=== PATIENT | male | born 1980 | race Caucasian/White ===

== ENCOUNTER 2020-09-28 22:47 | Emergency (ER) | payer SELFPAY ==
--- NOTE | 2020-09-29 02:21 | ER ---
Nurse's Notes [facility] Name: Adeel Ruff Jr Age: 40 yrs Sex: Male : 1980 Arrival Date: 09/28/2020 Time: 22:52 Bed Waiting Private MD: Diagnosis: Presentation: 09/29 00:50 Chief complaint: Patient states: cough, shortness of breath and had covid exposure, em denies fever. Coronavirus screen: Client denies travel out of the [place] in the last 14 days. Ebola Screen: Patient negative for fever greater than or equal to 101.5 degrees Fahrenheit, and additional compatible Ebola Virus Disease symptoms Patient denies exposure to infectious person. Patient denies travel to an Ebola-affected area in the 21 days before illness onset. No symptoms or risks identified at this time. Initial Sepsis Screen: Does the patient meet any 2 criteria? No. Patient's initial sepsis screen is negative. Does the patient have a suspected source of infection? No. Patient's initial sepsis screen is negative. Risk Assessment: Do you want to hurt yourself or someone else? Patient reports no desire to harm self or others. Onset of symptoms was September 29, 2020. 00:50 Method Of Arrival: Ambulatory em 00:50 Acuity: LIZZY 4 em Historical: - Allergies: 00:52 PENICILLINS; em - PMHx: 00:52 None; em - PSHx: 00:52 None; em - Immunization history:: Client reports having NOT received the Covid vaccine. - Social history:: Smoking status: Patient reports the use of cigarette tobacco products, smokes one pack cigarettes per day. Vital Signs: 00:50 BP 133 / 84; Pulse 75; Resp 16; Temp 98.2; Pulse Ox 100% on R/A; Weight 70.31 kg; em Height 5 ft. 10 in. (177.80 cm); 00:50 Body Mass Index 22.24 (70.31 kg, 177.80 cm) em ED Course: 09/28 22:52 Patient arrived in ED. cf2 09/29 00:52 Triage completed. em 00:52 Arm band placed on. em 02:20 Patient's name was called from ER lobby. No response. Unable to locate patient. Will bb disposition as left without being seen by a provider. Administered Medications: No medications were administered Outcome: 02:20 Patient left the ED. bb Signatures: Kyler Garza RN RN em Erica Cummins RN RN bb Maura Rizvi 2 Corrections: (The following items were deleted from the chart) 00:53 00:52 Allergies: No Known Allergies; em em
[2020-09-29 02:32] VITALS: BP 133/84; TEMP 98.2; O2SAT 100
== END 2020-09-29 02:20 | disposition left against medical advice (07) ==
LOC: ER 22:47
DX: Z53.21 Procedure and treatment not carried out due to patient leaving prior to being seen by health care provider (principal); Z20.822 Contact with and (suspected) exposure to COVID-19
CPT/HCPCS: 99281; U0003

== ENCOUNTER 2021-01-01 21:16 | Emergency (ER) | payer SELFPAY ==
[2021-01-01] MEDS ORDERED: AZITHROMYCIN 250 MG TAB ONE (22:02)
[2021-01-01] MEDS ORDERED: ONDANSETRON 4 MG/2 ML VIAL ONE (22:02)
[2021-01-01] MEDS ORDERED: MORPHINE 4 MG/ML SYR ONE (22:02)
[2021-01-01] MEDS ORDERED: NA CHLORIDE 0.9% 50 ML ONE (22:03)
[2021-01-01] MEDS ORDERED: DOXYCYCLINE 100 MG CAP PO ONE (22:03)
[2021-01-01] MEDS ORDERED: CEFTRIAXONE 1000 MG/VIAL ONE (22:03)
[2021-01-01] MEDS ORDERED: Levofloxacin 750mg IV 750 MG/150 ML BAG IV ONE (22:03)
[2021-01-01 22:28] LABS: Urine Blood Negative (Negative); Urine Glucose Negative (Negative); Urine Protein Negative (Negative); Urine Specific Gravity 1.025 (1.005-1.030); Urine pH 5.5 (5.0-7.0)
[2021-01-01 22:34] LABS: Absolute Lymphocytes (CBC) 2.1 K/uL (0.7-4.9); Basophils % 0.8 % (0-1.3); Hematocrit 35.8 % (39.6-49.0); Lymphocytes % 17.3 % (15.3-44.8); MPV 7.1 fL (7.6-11.3); RBC Red Blood Cell Count 3.94 M/uL (4.33-5.43)
--- NOTE | 2021-01-01 22:59 | ER ---
Nurse's Notes [facility] Name: Adeel Ruff Jr Age: 40 yrs Sex: Male : 1980 Arrival Date: 01/01/2021 Time: 21:20 Bed 9 Private MD: Diagnosis: Epididymitis;Epididymo-orchitis;Dysuria;Hydrocele, unspecified Presentation: 01/01 21:38 Chief complaint: Patient states: Pt states testicle swelling and burning with urination df1 increasing past 3 days. Coronavirus screen: Vaccine status: Patient reports being unvaccinated. Client denies travel out of the [place] in the last 14 days. At this time, the client does not indicate any symptoms associated with coronavirus-19. Ebola Screen: Patient negative for fever greater than or equal to 101.5 degrees Fahrenheit, and additional compatible Ebola Virus Disease symptoms Patient denies exposure to infectious person. Patient denies travel to an Ebola-affected area in the 21 days before illness onset. Initial Sepsis Screen: Does the patient meet any 2 criteria? No. Patient's initial sepsis screen is negative. Does the patient have a suspected source of infection? No. Patient's initial sepsis screen is negative. Risk Assessment: Do you want to hurt yourself or someone else? Patient reports no desire to harm self or others. Onset of symptoms was December 29, 2020. 21:38 Method Of Arrival: Wheelchair df1 21:38 Acuity: LIZZY 3 df1 21:40 Note Pt denies any trauma or injury. df1 Triage Assessment: 22:32 General: Appears uncomfortable, Behavior is calm, cooperative. Pain: Complains of pain df1 in groin. GI: No deficits noted. Historical: - Allergies: 21:39 PENICILLINS; df1 - Home Meds: 21:39 None [Active]; df1 - PMHx: 21:39 None; df1 - PSHx: 21:39 None; df1 - Immunization history:: Adult Immunizations not up to date, Client reports having NOT received the Covid vaccine. - Social history:: Smoking status: Patient reports the use of cigarette tobacco products, smokes one pack cigarettes per day. Patient uses alcohol, only on a social basis. Screenin:32 Abuse screen: Denies threats or abuse. Nutritional screening: No deficits noted. df1 Tuberculosis screening: No symptoms or risk factors identified. Fall Risk None identified. Assessment: 22:34 General: Appears uncomfortable, Behavior is calm, cooperative. Pain: Complains of pain df1 in groin Pain at worst was 10 out of 10 on a pain scale. Neuro: No deficits noted. Cardiovascular: No deficits noted. Respiratory: No deficits noted. GI: Bowel sounds present X 4 quads. Abd is soft and non tender Reports nausea. : Reports burning with urination. EENT: No deficits noted. Derm: No deficits noted. Musculoskeletal: No deficits noted. Vital Signs: 21:38 BP 105 / 71; Pulse 97; Resp 18; Temp 98.4; Pulse Ox 100% on R/A; Weight 63.5 kg; Height df1 5 ft. 10 in. (177.80 cm); Pain 9/10; 22:33 BP 116 / 75; Pulse 95; Resp 18; Pulse Ox 99% on R/A; df1 01/02 00:23 BP 110 / 68; Pulse 89; Resp 18; Pulse Ox 100% on R/A; Pain 4/10; df1 01/01 21:38 Body Mass Index 20.09 (63.50 kg, 177.80 cm) df1 ED Course: 01/01 21:20 Patient arrived in ED. cf2 21:39 Triage completed. df1 21:48 Babar Morris MD is Attending Physician. hermilo 22:30 US Scrotum Testicles Sent. df1 22:31 Urine Culture Sent. df1 22:31 Comprehensive Metabolic Panel Sent. df1 22:31 CBC with Diff Sent. df1 22:31 No provider procedures requiring assistance completed. Inserted saline lock: 20 gauge df1 in right antecubital area, using aseptic technique. 22:32 Patient has correct armband on for positive identification. Placed in gown. Bed in low df1 position. Call light in reach. Side rails up X 1. 22:37 US Scrotum Testicles In Process Unspecified. EDMS 22:41 Bianka Solomon, LOLITA is Primary Nurse. ld1 22:58 Jacob Reyes MD is Referral Physician. hermilo 23:31 Jacob Reyes MD is Referral Physician. hermilo 01/02 00:24 IV discontinued, intact, bleeding controlled, No redness/swelling at site. Pressure df1 dressing applied. 00:24 Arm band placed on right wrist. df1 Administered Medications: 01/01 22:30 Drug: Zofran (Ondansetron) 4 mg Route: IVP; Site: right antecubital; df1 22:55 Follow up: Response: No adverse reaction ld1 22:31 Drug: Rocephin (cefTRIAXone) 2 grams Route: IV; Rate: per protocol; Site: right df1 antecubital; 22:55 Follow up: Response: No adverse reaction ld1 01/02 00:25 Follow up: IV Status: Completed infusion; IV Intake: 50ml df1 01/01 22:31 Drug: Doxycycline 200 mg Route: PO; df1 22:55 Follow up: Response: No adverse reaction ld1 22:31 Drug: Zithromax (azithromycin) 1 grams Route: PO; df1 22:55 Follow up: Response: No adverse reaction ld1 22:31 Drug: morphine 4 mg Route: IVP; Site: right antecubital; df1 22:55 Follow up: Response: No adverse reaction ld1 22:54 Drug: levofloxacin 750 mg Volume: 150 ml; Route: IVPB; Infused Over: 90 mins; Site: ld1 right antecubital; 01/02 00:24 Follow up: IV Status: Completed infusion; IV Intake: 150ml df1 Intake: 00:24 IV: 150ml; Total: 150ml. df1 00:25 IV: 50ml; Total: 200ml. df1 Outcome: 01/01 22:58 Discharge ordered by . hermilo 23:31 Discharge ordered by . hermilo 01/02 00:23 Discharged to home ambulatory. df1 Condition: good Discharge instructions given to patient, Instructed on discharge instructions, follow up and referral plans. medication usage, Demonstrated understanding of instructions, follow-up care, medications, Prescriptions given X 3. 00:25 Patient left the ED. df1 Signatures: Dispatcher [employer] EDBabar Rao MD MD cha Frazier, Celesta cf2 Bianka Solomon RN RN ld1 Marlys Moise df1
--- NOTE | 2021-01-01 22:59 | EDPHYS ---
Physician Documentation [facility] Name: Adeel Ruff Jr Age: 40 yrs Sex: Male : 1980 Arrival Date: 01/01/2021 Time: 21:20 Bed 9 Private MD: ED Physician Babar Morris HPI: 01/01 22:02 This 40 yrs old Male presents to ER via Wheelchair with complaints of hermilo Abdominal Pain, Testicular Swelling. 22:02 The patient presents with scrotal pain, swelling, tenderness, urinary symptoms, hermilo dysuria. Onset: The symptoms/episode began/occurred 3 day(s) ago. Modifying factors: The symptoms are alleviated by remaining still, the symptoms are aggravated by movement, pressure, urinating. Associated signs and symptoms: Pertinent positives: abdominal pain, dysuria. Severity of symptoms: At their worst the symptoms were moderate, in the emergency department the symptoms are unchanged. The patient has not experienced similar symptoms in the past. Historical: - Allergies: 21:39 PENICILLINS; df1 - Home Meds: 21:39 None [Active]; df1 - PMHx: 21:39 None; df1 - PSHx: 21:39 None; df1 - Immunization history:: Adult Immunizations not up to date, Client reports having NOT received the Covid vaccine. - Social history:: Smoking status: Patient reports the use of cigarette tobacco products, smokes one pack cigarettes per day. Patient uses alcohol, only on a social basis. ROS: 22:02 Constitutional: Negative for fever, chills, and weight loss, Eyes: Negative for injury, hermilo pain, redness, and discharge, ENT: Negative for injury, pain, and discharge, Neck: Negative for injury, pain, and swelling, Cardiovascular: Negative for chest pain, palpitations, and edema, Respiratory: Negative for shortness of breath, cough, wheezing, and pleuritic chest pain, Abdomen/GI: Negative for abdominal pain, nausea, vomiting, diarrhea, and constipation, Back: Negative for injury and pain, MS/Extremity: Negative for injury and deformity, Skin: Negative for injury, rash, and discoloration, Neuro: Negative for headache, weakness, numbness, tingling, and seizure, Psych: Negative for depression, anxiety, suicide ideation, homicidal ideation, and hallucinations, Allergy/Immunology: Negative for hives, rash, and allergies, Endocrine: Negative for neck swelling, polydipsia, polyuria, polyphagia, and marked weight changes, Hematologic/Lymphatic: Negative for swollen nodes, abnormal bleeding, and unusual bruising. 22:02 : Positive for burning with urination, testicular pain of the right testicle. Exam: 22:02 Constitutional: This is a well developed, well nourished patient who is awake, alert, hermilo and in no acute distress. Head/Face: Normocephalic, atraumatic. Eyes: Pupils equal round and reactive to light, extra-ocular motions intact. Lids and lashes normal. Conjunctiva and sclera are non-icteric and not injected. Cornea within normal limits. Periorbital areas with no swelling, redness, or edema. ENT: Nares patent. No nasal discharge, no septal abnormalities noted. Tympanic membranes are normal and external auditory canals are clear. Oropharynx with no redness, swelling, or masses, exudates, or evidence of obstruction, uvula midline. Mucous membranes moist. Neck: Trachea midline, no thyromegaly or masses palpated, and no cervical lymphadenopathy. Supple, full range of motion without nuchal rigidity, or vertebral point tenderness. No Meningismus. Chest/axilla: Normal chest wall appearance and motion. Nontender with no deformity. No lesions are appreciated. Cardiovascular: Regular rate and rhythm with a normal S1 and S2. No gallops, murmurs, or rubs. Normal PMI, no JVD. No pulse deficits. Respiratory: Lungs have equal breath sounds bilaterally, clear to auscultation and percussion. No rales, rhonchi or wheezes noted. No increased work of breathing, no retractions or nasal flaring. Abdomen/GI: Soft, non-tender, with normal bowel sounds. No distension or tympany. No guarding or rebound. No evidence of tenderness throughout. Back: No spinal tenderness. No costovertebral tenderness. Full range of motion. Skin: Warm, dry with normal turgor. Normal color with no rashes, no lesions, and no evidence of cellulitis. MS/ Extremity: Pulses equal, no cyanosis. Neurovascular intact. Full, normal range of motion. Neuro: Awake and alert, GCS 15, oriented to person, place, time, and situation. Cranial nerves II-XII grossly intact. Motor strength 5/5 in all extremities. Sensory grossly intact. Cerebellar exam normal. Normal gait. Psych: Awake, alert, with orientation to person, place and time. Behavior, mood, and affect are within normal limits. 22:02 : CVA tenderness, is absent, Male external genitalia: Circumcision noted. swelling: scrotal, tenderness, of the right testicle is noted, Bladder: is normal, Sexual behavior: the patient is sexually active, and reports multiple partners. Vital Signs: 21:38 BP 105 / 71; Pulse 97; Resp 18; Temp 98.4; Pulse Ox 100% on R/A; Weight 63.5 kg; Height df1 5 ft. 10 in. (177.80 cm); Pain 9/10; 22:33 BP 116 / 75; Pulse 95; Resp 18; Pulse Ox 99% on R/A; df1 01/02 00:23 BP 110 / 68; Pulse 89; Resp 18; Pulse Ox 100% on R/A; Pain 4/10; df1 01/01 21:38 Body Mass Index 20.09 (63.50 kg, 177.80 cm) df1 MDM: 01/01 21:49 Patient medically screened. hermilo 22:04 Differential diagnosis: UTI, prostatitis. Data reviewed: vital signs, nurses notes, lab [facility] test result(s), radiologic studies, doppler. Data interpreted: engine monitor: rate is 97 beats/min, rhythm is regular, Pulse oximetry: on room air is 100 %. Counseling: I had a detailed discussion with the patient and/or guardian regarding: the historical points, exam findings, and any diagnostic results supporting the discharge/admit diagnosis, lab results, radiology results, the need for outpatient follow up, for definitive care, a family practitioner, a urologist. 01/01 21:58 Order name: CBC with Diff; Complete Time: 22:58 hermilo 01/01 21:58 Order name: Comprehensive Metabolic Panel; Complete Time: 23:17 hermilo 01/01 21:58 Order name: Urine Culture [facility] 01/01 22:02 Order name: US Scrotum Testicles [facility] 01/01 22:28 Order name: Urine Dipstick-Ancillary; Complete Time: 22:58 EDMS 01/01 21:58 Order name: Urine Dipstick-Ancillary (obtain specimen); Complete Time: 22:31 hermilo Administered Medications: 22:30 Drug: Zofran (Ondansetron) 4 mg Route: IVP; Site: right antecubital; df1 22:55 Follow up: Response: No adverse reaction ld1 22:31 Drug: Rocephin (cefTRIAXone) 2 grams Route: IV; Rate: per protocol; Site: right df1 antecubital; 22:55 Follow up: Response: No adverse reaction ld1 01/02 00:25 Follow up: IV Status: Completed infusion; IV Intake: 50ml df1 01/01 22:31 Drug: Doxycycline 200 mg Route: PO; df1 22:55 Follow up: Response: No adverse reaction ld1 22:31 Drug: Zithromax (azithromycin) 1 grams Route: PO; df1 22:55 Follow up: Response: No adverse reaction ld1 : Drug: morphine 4 mg Route: IVP; Site: right antecubital; df1 22:55 Follow up: Response: No adverse reaction ld1 22:54 Drug: levofloxacin 750 mg Volume: 150 ml; Route: IVPB; Infused Over: 90 mins; Site: ld1 right antecubital; 01/02 00:24 Follow up: IV Status: Completed infusion; IV Intake: 150ml df1 Disposition Summary: 01/01/21 23:31 Discharge Ordered Location: Home(01/01/21 23:31) hermilo Problem: new(01/01/21 23:31) hermilo Symptoms: have improved(01/01/21 23:31) hermilo Condition: Stable(01/01/21 23:31) hermilo Diagnosis - Epididymitis(01/01/21 23:31) hermilo - Epididymo-orchitis(01/01/21 23:31) hermilo - Dysuria(01/01/21 23:31) hermilo - Hydrocele, unspecified(01/01/21 23:31) hermilo Followup: hermilo - With: Private Physician - When: 2 - 3 days - Reason: Recheck today's complaints, Continuance of care, Re-evaluation by your physician Followup: hermilo - With: - When: 2 - 3 days - Reason: Recheck today's complaints, Continuance of care, Re-evaluation by your physician Discharge Instructions: - Discharge Summary Sheet hermilo - Dysuria hermilo - Epididymitis hermilo - Orchitis hermilo - Hydrocele, Adult hermilo Forms: - Medication Reconciliation Form hermilo - Thank You Letter hermilo - Antibiotic Education [facility] - Prescription Opioid Use [facility] Prescriptions: - Ibuprofen 600 mg Oral Tablet - take 1 tablet by ORAL route every 6 hours As needed take with food; 30 tablet; hermilo Refills: 0, Product Selection Permitted - Doxycycline Hyclate 100 mg Oral Tablet - take 1 tablet by ORAL route every 12 hours; 20 tablet; Refills: 0, Product hermilo Selection Permitted - levofloxacin 750 mg Oral Tablet - take 1 tablet by ORAL route once daily; 7 tablet; Refills: 0, Product Selection hermilo Permitted - Tylenol-Codeine #3 300 mg-30 mg Oral - take 2 tablet by ORAL route every 4-6 hours; 15 tablet; Refills: 0, Product hermilo Selection Permitted Signatures: Dispatcher [employer] EDBabar Rao MD MD cha Dibbern, Lauren RN RN ld1 Marlys Moise df1 Corrections: (The following items were deleted from the chart) 01/01 23:04 22:58 Home [facility] 23:04 22:58 new [facility] 23:04 22:58 have improved [facility] 23:04 22:58 Stable [facility] 23:04 22:58 Epididymitis [facility] 23:04 22:58 Epididymo-orchitis [facility] 23:04 22:58 Dysuria [facility] 23:04 22:58 Hydrocele, unspecified [facility]
[2021-01-01 23:07] LABS: Albumin 3.2 g/dL (3.4-5.0); Bilirubin Total 0.2 mg/dL (0.2-1.0); Potassium 3.8 mmol/L (3.5-5.1)
[2021-01-02 04:07] VITALS: BP 110/68; O2SAT 100
--- NOTE | 2021-01-02 11:44 | RAD REPORT ---
EXAM DESCRIPTION: US - Scrotum Testicles - 01/01/2021 11:33 pm CLINICAL HISTORY: 40 years Male PAIN COMPARISON: None TECHNIQUE: Real-time and Doppler sonography of the testicles was performed bilaterally. FINDINGS: Right testicle is normal in size and echogenicity measuring 4.7 x 3.2 x 2.8 cm. Doppler ev aluation revealed satisfactory flow. Head of the epididymis on the right is enlarged measuring 2.3 cm . Doppler evaluation revealed increased flow. Small to moderate right hydrocele. No evidence for vari cocele. Right scrotal wall thickening. Left testicle is normal in size and echogenicity measuring 4.9 x 2.9 x 3.1 cm. Doppler evaluation rev ealed satisfactory flow. Head of the epididymis on the left measures 1.2 cm. Doppler evaluation revea led satisfactory flow. Small to moderate left hydrocele. No evidence for left varicocele. IMPRESSION: No sonographic evidence for testicular mass or torsion. Findings indicating right epididymitis. Small to moderate bilateral hydroceles. Electronically signed by: Ginette Jaime MD 01/01/2021 10:59 PM SEWING INSPECTOR Due to temporary technical issues with the PACS/Fluency reporting system, reports are being signed by the in house radiologist without review as a courtesy to ensure prompt reporting. The interpreting r adiologist is fully responsible for the content of the report.
== END 2021-01-02 00:25 | disposition home or self-care (01) ==
LOC: ER 21:16
DX: N45.3 Epididymo-orchitis (principal); N43.3 Hydrocele, unspecified; F17.210 Nicotine dependence, cigarettes, uncomplicated; Z88.0 Allergy status to penicillin
CPT/HCPCS: 36415; 76870; 80053; 81003; 85025; 87086; 87088; 96365; 96375; 99284; J2405

== ENCOUNTER 2021-05-10 03:19 | Emergency (ER) | payer SELFPAY ==
--- NOTE | 2021-05-10 03:53 | ER ---
Nurse's Notes [facility] Name: Adeel Ruff Jr Age: 41 yrs Sex: Male : 1980 Arrival Date: 05/10/2021 Time: 03:22 Bed 13 Private MD: Diagnosis: Cutaneous abscess of face;Hematuria, unspecified;Hematospermia Presentation: 05/10 03:32 Chief complaint: Patient states: "I think I caught an STD, this bump hurts, and I just lp1 ejaculated straight blood"; Patient reports painful abscess to frenulum above lip; denies any penile discharge, reports odorous semen. Coronavirus screen: At this time, the client does not indicate any symptoms associated with coronavirus-19. Ebola Screen: No symptoms or risks identified at this time. Risk Assessment: Do you want to hurt yourself or someone else? Patient reports no desire to harm self or others. Onset of symptoms was May 10, 2021. 03:32 Method Of Arrival: Ambulatory lp1 03:32 Acuity: LIZZY 3 lp1 06:02 Initial Sepsis Screen: Does the patient meet any 2 criteria? No. Patient's initial sv1 sepsis screen is negative. Does the patient have a suspected source of infection? No. Patient's initial sepsis screen is negative. Triage Assessment: 06:02 General: Appears uncomfortable, slender, well groomed, Behavior is calm, cooperative, sv1 appropriate for age. Historical: - Allergies: 03:34 PENICILLINS; lp1 - Home Meds: 03:34 None [Active]; lp1 - PMHx: 03:34 None; lp1 - PSHx: 03:34 None; lp1 - Immunization history:: Adult Immunizations unknown. - Social history:: Smoking status: Patient reports the use of cigarette tobacco products, smokes two packs cigarettes per day. - Family history:: not pertinent. Screenin:34 Abuse screen: Denies threats or abuse. Denies injuries from another. Nutritional lp1 screening: No deficits noted. Tuberculosis screening: No symptoms or risk factors identified. Fall Risk None identified. Assessment: 04:43 Pain: Denies pain. sv1 06:03 Reassessment: Labs completed. Cleared for discharge to home by the provider. sv1 medications and follow up instructions were explained to the patient.. Vital Signs: 03:32 Weight 63.5 kg; Height 5 ft. 11 in. (180.34 cm); lp1 03:52 BP 118 / 77 LA Supine (auto/reg); Pulse 85 MON; Resp 16 S; Temp 98.3(O); Pulse Ox 98% ; sv1 Weight 63.5 kg (R); Height 5 ft. 11 in. (180.34 cm) (R); 04:43 BP 110 / 74 LA Supine (auto/reg); Pulse 80 MON; Resp 16 S; Pulse Ox 98% ; Pain 0/10; sv1 05:59 BP 107 / 78 LA Supine (auto/reg); Pulse 84; Resp 18 S; Pulse Ox 98% on R/A; sv1 03:52 Body Mass Index 19.53 (63.50 kg, 180.34 cm) sv1 ED Course: 03:22 Patient arrived in ED. ag3 03:34 Triage completed. lp1 03:34 Arm band placed on. lp1 03:34 Patient has correct armband on for positive identification. lp1 03:36 Babar Morris MD is Attending Physician. [facility] 03:52 Olman Zamarripa, LOLITA is Primary Nurse. sv1 04:43 No provider procedures requiring assistance completed. Patient did not have IV access sv1 during this emergency room visit. 05:58 Jacob Reyes MD is Referral Physician. hermilo Administered Medications: 04:10 Drug: Bactrim (trimethoprim-sulfamethoxazole) (160 mg-800 mg (DS) 1 tablet Route: PO; sv1 04:10 Drug: Doxycycline 200 mg Route: PO; sv1 04:10 Drug: Bactroban (mupirocin) Ointment 2 % 1 application Route: Topical; Site: wound; sv1 Outcome: 03:53 Discharge ordered by . [facility] 05:59 Discharged to home ambulatory. sv1 05:59 Condition: improved 05:59 Discharge instructions given to patient. 06:07 Patient left the ED. sv1 Signatures: Babar Morris MD MD cha Pena, Laura, RN RN lp1 Yocasta Sanders 3 Carmen Fox cs9 Olman Zamarripa, RN RN sv1 Corrections: (The following items were deleted from the chart) 04:57 04:29 URINALYSIS+[id number].LAB.BRZ drawn and sent. cs9 EDMS
--- NOTE | 2021-05-10 03:53 | EDPHYS ---
Physician Documentation [facility] Name: Adeel Ruff Jr Age: 41 yrs Sex: Male : 1980 Arrival Date: 05/10/2021 Time: 03:22 Bed 13 Private MD: JUAQUIN Physician Babar Morris HPI: 05/10 03:47 This 41 yrs old Male presents to ER via Ambulatory with complaints of BUMP ON hermilo FACE. 03:47 The patient presents with an abscess of the nose, The patient presents with cellulitis hermilo of the nasal septum. Description: The affected area is small, confluent, draining, erythematous, fluctuant. Onset: The symptoms/episode began/occurred 3 day(s) ago. Possible cause(s): unknown. Associated signs and symptoms: The patient has no apparent associated signs or symptoms. The patient presents with urinary symptoms, hemaruria. Modifying factors: The symptoms are alleviated by nothing, the symptoms are aggravated by nothing. Modifying factors: the symptoms are alleviated by nothing, the symptoms are aggravated by nothing. Severity of symptoms: At their worst the symptoms were mild, in the emergency department the symptoms have improved, moderately. Historical: - Allergies: 03:34 PENICILLINS; lp1 - Home Meds: 03:34 None [Active]; lp1 - PMHx: 03:34 None; lp1 - PSHx: 03:34 None; lp1 - Immunization history:: Adult Immunizations unknown. - Social history:: Smoking status: Patient reports the use of cigarette tobacco products, smokes two packs cigarettes per day. - Family history:: not pertinent. ROS: 03:47 Constitutional: Negative for fever, chills, and weight loss, Eyes: Negative for injury, hermilo pain, redness, and discharge, ENT: Negative for injury, pain, and discharge, Neck: Negative for injury, pain, and swelling, Cardiovascular: Negative for chest pain, palpitations, and edema, Respiratory: Negative for shortness of breath, cough, wheezing, and pleuritic chest pain, Abdomen/GI: Negative for abdominal pain, nausea, vomiting, diarrhea, and constipation, Back: Negative for injury and pain, : Negative for injury, bleeding, discharge, and swelling, MS/Extremity: Negative for injury and deformity, Neuro: Negative for headache, weakness, numbness, tingling, and seizure, Psych: Negative for depression, anxiety, suicide ideation, homicidal ideation, and hallucinations, Allergy/Immunology: Negative for hives, rash, and allergies, Endocrine: Negative for neck swelling, polydipsia, polyuria, polyphagia, and marked weight changes, Hematologic/Lymphatic: Negative for swollen nodes, abnormal bleeding, and unusual bruising. 03:47 Skin: Positive for cellulitis, erythema, swelling, of the nose. Exam: 03:47 Constitutional: This is a well developed, well nourished patient who is awake, alert, hermilo and in no acute distress. Head/Face: Normocephalic, atraumatic. Eyes: Pupils equal round and reactive to light, extra-ocular motions intact. Lids and lashes normal. Conjunctiva and sclera are non-icteric and not injected. Cornea within normal limits. Periorbital areas with no swelling, redness, or edema. ENT: Nares patent. No nasal discharge, no septal abnormalities noted. Tympanic membranes are normal and external auditory canals are clear. Oropharynx with no redness, swelling, or masses, exudates, or evidence of obstruction, uvula midline. Mucous membranes moist. Neck: Trachea midline, no thyromegaly or masses palpated, and no cervical lymphadenopathy. Supple, full range of motion without nuchal rigidity, or vertebral point tenderness. No Meningismus. Chest/axilla: Normal chest wall appearance and motion. Nontender with no deformity. No lesions are appreciated. Cardiovascular: Regular rate and rhythm with a normal S1 and S2. No gallops, murmurs, or rubs. Normal PMI, no JVD. No pulse deficits. Respiratory: Lungs have equal breath sounds bilaterally, clear to auscultation and percussion. No rales, rhonchi or wheezes noted. No increased work of breathing, no retractions or nasal flaring. Abdomen/GI: Soft, non-tender, with normal bowel sounds. No distension or tympany. No guarding or rebound. No evidence of tenderness throughout. Back: No spinal tenderness. No costovertebral tenderness. Full range of motion. MS/ Extremity: Pulses equal, no cyanosis. Neurovascular intact. Full, normal range of motion. Neuro: Awake and alert, GCS 15, oriented to person, place, time, and situation. Cranial nerves II-XII grossly intact. Motor strength 5/5 in all extremities. Sensory grossly intact. Cerebellar exam normal. Normal gait. Psych: Awake, alert, with orientation to person, place and time. Behavior, mood, and affect are within normal limits. 03:47 : Male external genitalia: normal. 03:47 Skin: abscess, that is small, of the nose, with drainage, with fluctuance, with pointing, that is subtle. Vital Signs: 03:32 Weight 63.5 kg; Height 5 ft. 11 in. (180.34 cm); lp1 03:52 BP 118 / 77 LA Supine (auto/reg); Pulse 85 MON; Resp 16 S; Temp 98.3(O); Pulse Ox 98% ; sv1 Weight 63.5 kg (R); Height 5 ft. 11 in. (180.34 cm) (R); 04:43 BP 110 / 74 LA Supine (auto/reg); Pulse 80 MON; Resp 16 S; Pulse Ox 98% ; Pain 0/10; sv1 05:59 BP 107 / 78 LA Supine (auto/reg); Pulse 84; Resp 18 S; Pulse Ox 98% on R/A; sv1 03:52 Body Mass Index 19.53 (63.50 kg, 180.34 cm) sv1 MDM: 03:36 Patient medically screened. hermilo 03:51 Differential diagnosis: abscess, UTI, urethritis. Data reviewed: vital signs, nurses hermilo notes. 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 Test interpretation: by ED physician or midlevel provider:. Counseling: I had a detailed discussion with the patient and/or guardian regarding: the historical points, exam findings, and any diagnostic results supporting the discharge/admit diagnosis, the need for outpatient follow up, for definitive care, a family practitioner, a general surgeon. 05/10 04:16 Order name: Urine Dipstick-Ancillary; Complete Time: 05:50 EDMN 05/10 04:57 Order name: Urine Microscopic Only; Complete Time: 05:50 EDMN 05/10 05:06 Order name: Urine Culture [facility] 05/10 03:48 Order name: Urine Dipstick-Ancillary (obtain specimen); Complete Time: 04:30 lp1 Administered Medications: 04:10 Drug: Bactrim (trimethoprim-sulfamethoxazole) (160 mg-800 mg (DS) 1 tablet Route: PO; sv1 04:10 Drug: Doxycycline 200 mg Route: PO; sv1 04:10 Drug: Bactroban (mupirocin) Ointment 2 % 1 application Route: Topical; Site: wound; sv1 Disposition Summary: 05/10/21 03:53 Discharge Ordered Location: Home [facility] Problem: new hermilo Symptoms: have improved hermilo Condition: Stable hermilo Diagnosis - Cutaneous abscess of face hermilo - Hematuria, unspecified hermilo - Hematospermia hermilo Followup: hermilo - With: Private Physician - When: 2 - 3 days - Reason: Recheck today's complaints, Continuance of care, Re-evaluation by your physician Followup: hermilo - With: Jacob Reyes MD - When: 2 - 3 days - Reason: Recheck today's complaints, Continuance of care, Re-evaluation by your physician Discharge Instructions: - Discharge Summary Sheet hermilo - Skin Abscess hermilo - Hematuria, Adult hermilo - Skin Abscess, Dwud-es-Snwu [facility] Forms: - Medication Reconciliation Form [facility] - Thank You Letter [facility] - Antibiotic Education [facility] - Prescription Opioid Use [facility] Prescriptions: - Centany 2 % Topical ointment - apply 1 application by TOPICAL route 3 times per day; 30 gram; Refills: 0, [facility] Product Selection Permitted - Doxycycline Hyclate 100 mg Oral Tablet - take 1 tablet by ORAL route every 12 hours; 20 tablet; Refills: 0, Product [facility] Selection Permitted - Bactrim DS 800-160 mg Oral Tablet - take 1 tablet by ORAL route every 12 hours for 10 days; 20 tablet; Refills: 0, [facility] Product Selection Permitted - Tylenol-Codeine #3 300 mg-30 mg Oral - take 2 tablet by ORAL route every 6 hours; 20 tablet; Refills: 0, Product [facility] Selection Permitted Signatures: Dispatcher [employer] EDBabar Rao MD MD cha Pena, Laura RN RN lp1 Olman Zamarripa RN RN sv1 Corrections: (The following items were deleted from the chart) 04:57 03:48 URINALYSIS+[id number] ordered. EDMN EDMS
[2021-05-10] MEDS ORDERED: CEFTRIAXONE 1000 MG/VIAL ONE (04:03)
[2021-05-10] MEDS ORDERED: SMZ./TMP. 800/160 MG TABLET ONE (04:09)
[2021-05-10] MEDS ORDERED: MUPIROCIN 2% OINT 22GM TUBE TOP ONE (04:09)
[2021-05-10] MEDS ORDERED: DOXYCYCLINE 100 MG CAP PO ONE (04:09)
[2021-05-10 04:15] LABS: Urine Blood Negative (Negative); Urine Glucose Negative (Negative); Urine Protein Negative (Negative); Urine Specific Gravity >=1.030 (1.005-1.030)
[2021-05-10 04:58] LABS: Calcium Oxalate Crystals- Ur MODERATE (NONE SEEN); Urine Bacteria 20-50 /HPF (NONE SEEN); Urine Mucus 2+ /HPF (NONE SEEN); Urine RBC <5 /HPF (NONE SEEN)
[2021-05-10 06:12] VITALS: TEMP 98.3; O2SAT 98
[2021-05-10 06:15] VITALS: BP 107/78
== END 2021-05-10 06:07 | disposition home or self-care (01) ==
LOC: ER 03:19
DX: J34.0 Abscess, furuncle and carbuncle of nose (principal); R31.9 Hematuria, unspecified; R36.1 Hematospermia; Z88.0 Allergy status to penicillin
CPT/HCPCS: 81003; 81015; 87086; 87088; 99283